=== PATIENT | male | born 1940 | race Caucasian/White ===

== ENCOUNTER → 2018-09-20 09:47 | Outpatient (CLI) | payer MEDICARE, SELFPAY ==
--- NOTE | 2018-09-20 09:55 | RAD_ITS ---
STUDY: X-RAY - ABDOMEN/PELVIS REASON FOR EXAM: Male, 78 years old. Kidney stones. TECHNIQUE: Two AP supine views of the abdomen and pelvis. COMPARISON: February 09, 2005. FINDINGS: Normal visualized lung bases. There is an unremarkable bowel gas pattern. Large amount of feces throughout the colon. There is no demonstrated free abdominal air. The visualized liver, spleen and kidneys are grossly normal in size and morphology. No visualized renal calculi. The right ureteral stent, seen on the previous study, is no longer present. There are multiple phleboliths unchanged from prior study. Stable degenerative changes of the lumbar spine and hips. RAD/Abdomen Single View IMPRESSION: 1. Interval removal of right ureteral stent seen on the prior study. 2. No visualized renal or ureteral calculi. Electronically Signed: Tigre Velázquez DO at 11:02 EDT Tel [phone], Service support ,
== END ==
PROVIDERS: Family Provider Internal Medicine; PCP Internal Medicine; Referring Provider Urology; Visit Provider Urology
DX: N20.0 Calculus of kidney (principal)
CPT/HCPCS: 74018

== ENCOUNTER 2018-10-05 05:24 | Day surgery (SDC) | payer MEDICARE, SELFPAY ==
[2018-10-05 05:48] VITALS: BP 129/83; PULSE 87; RESP 16; TEMP 36.6; O2SAT 97; BMI 33.5
[2018-10-05 06:11] LABS: Bedside Glucose 126 mg/dL (70-110)
[2018-10-05] MEDS: Cefazolin 2 GM in 0.9% Normal Saline 100 ML IV (07:23)
[2018-10-05] MEDS: Lubricating Jelly 60 GM Tube 30 GM TOPICAL (07:54)
--- NOTE | 2018-10-05 08:03 | PCM.DC.URO ---
Discharge Diet: Light diet - advance as tolerated Discharge Activity: Return to Normal Activity Call your doctor if your incision/area has: Continuous Slow Oozing, Sudden Increased Bleeding, Increased Pain/ Swelling, Increased Redness, Foul Smelling Discharge, Swelling at the incision site Instructions: Ureteral Stents, Treating Kidney Stones: Ureteroscopic Stone Removal Allergies/Adverse Reactions: Allergies morphine Allergy (Verified 09/28/18 10:28) Unknown oxycodone [From Percocet] Allergy (Verified 09/28/18 10:28) Rash Medications to take at Discharge Aspirin E.C. [Ecotrin] 325 mg PO DAILY@0800 09/28/18 Carvedilol [Coreg] 12.5 mg PO BID 09/28/18 Diltiazem [Cardizem] 120 mg PO DAILY 09/28/18 Flaxseed Oil 1,000 mg PO BID 09/28/18 Fluticasone 0.05% [Flonase Nasal [place]] 2 spray NASAL DAILY 09/28/18 Glimepiride [Amaryl] 4 mg PO DAILY 09/28/18 Levothyroxine [Synthroid] 50 mcg PO DAILY 09/28/18 Lisinopril 5 mg PO DAILY 09/28/18 Saw Benedict Fruit [Saw Benedict] 450 mg PO 4X/DAY 09/28/18 Vit A/Vit C/Vit E/Zinc/Copper [Preservision Areds Tablet] 1 each PO BID 09/28/18 Primary Care Physician: Susan Reich [Primary Care Provider] - Test Results: Test results from this visit will be discussed in further detail at your follow-up appointment, if applicable. Please Follow Up With: Kvng Hughes MD When: please call to make an appointment.
[2018-10-05 08:10] VITALS: BP 122/92; BP 129/83; PULSE 85; RESP 16; TEMP 36.6; O2SAT 94
--- NOTE | 2018-10-05 08:11 | OP.PCM_ITS ---
Report of Operation Date of Procedure: 10/05/18 Pre-Operative Diagnosis: Left renal calculi multiple Post-Operative Diagnosis: The same plus suspect uric acid stones Surgery/Procedure Performed:: Cystoscopy, left balloon dilation of the ureter, left retrograde pyelogram and interpretation of fluoroscopic images, left ureteroscopy laser lithotripsy of stones and left stent placement Description of Surgical Findings:: 78-year-old male taken back to the operating room at the smooth induction of general anesthesia he was placed in dorsolithotomy position, the penis and testicles are prepped and draped in usual sterile fashion, went into the bladder with a 21 [place] rigid cystourethroscope, I think the entire length the urethra was normal the prostate short length but obstructive bilateral hypertrophy no median lobe, the trigone was normal inside the bladder no tumors or stones were seen identified the left ureteral orifice advanced a wire up the orifice balloon dilated the distal left ureter with the balloon dilator at the balloon dilation was completed the wire in place and over the wire went in with a flexible ureteroscope, performed a retrograde pyelogram and could see contrast going up into the kidney filling of the calyces identified the stones after interpreting the fluoroscopy then I proceeded with ureteroscopy I laser the stones in the upper pole from lasered some stones in the lower pole and then there was one stone trapped in the lower pole calyx off to the side that was impossible to get into with the ureteroscope was able to get barely into the into the calyx but could not engage with the laser the side to leave the stone alone stent is stented in the lower pole trap stone probably very low likelihood given the problem will prescribe medication to dissolve the stone. I then left the wire in place over the wire I then advanced a stent stent was placed in the kidney on the left side from the kidney to the bladder left the string of the stent with string quite long so it would be easy to extract and the next follow-up visit in the patient's anesthetic was reversed he was taken to the back to PACU good condition he will follow-up in the office for a stent removal and will put him on some potassium citrate for suspected uric acid stones. Type of Anesthesia:: General Drains: stent left side - Admit VTE Documentation VTE Present on Admission: No VTE Mechan Device Prophylaxis: SCD's
[2018-10-05 08:15] VITALS: BP 118/80; BP 129/83; PULSE 85; RESP 16; O2SAT 94
[2018-10-05 08:26] LABS: Bedside Glucose 147 mg/dL (70-110)
[2018-10-05] MEDS: Ketorolac 15 MG/ML Vial IV (08:26)
[2018-10-05 08:30] VITALS: BP 126/82; BP 129/83; PULSE 80; RESP 16; O2SAT 93
[2018-10-05 08:45] VITALS: BP 127/85; BP 129/83; PULSE 75; RESP 16; TEMP 36.1; O2SAT 94
[2018-10-05 09:50] VITALS: BP 121/81; BP 129/83; PULSE 75; RESP 16; TEMP 36.1; O2SAT 96
== END 2018-10-05 09:50 | disposition home or self-care (01) ==
LOC: SDC 05:26 → AC 05:26
PROVIDERS: Family Provider Internal Medicine; PCP Internal Medicine; Referring Provider Urology; Visit Provider Urology
PROC: 0TJ98ZZ Inspection of Ureter, Via Natural or Artificial Opening Endoscopic (ICD-10-PCS; CPT 52352; principal; 2018-10-05 07:20)
DX: N20.0 Calculus of kidney (principal); N40.1 Benign prostatic hyperplasia with lower urinary tract symptoms; R35.1 Nocturia; R35.0 Frequency of micturition; E11.9 Type 2 diabetes mellitus without complications; I10 Essential (primary) hypertension; E03.9 Hypothyroidism, unspecified; E66.9 Obesity, unspecified; Z68.34 Body mass index [BMI] 34.0-34.9, adult; Z95.5 Presence of coronary angioplasty implant and graft; Z79.84 Long term (current) use of oral hypoglycemic drugs; Z79.82 Long term (current) use of aspirin; Z79.899 Other long term (current) drug therapy
CPT/HCPCS: 00873; 52356; 76000; 82962; J7120; C2617; J2405

== ENCOUNTER → 2018-11-06 10:06 | Outpatient (CLI) | payer MEDICARE, SELFPAY ==
--- NOTE | 2018-11-06 10:12 | RAD_ITS ---
STUDY: X-RAY - ABDOMEN/PELVIS REASON FOR EXAM: Male, 78 years old. Bilateral kidney stones. TECHNIQUE: Two AP supine views of the abdomen and pelvis. COMPARISON: September 20, 2018. FINDINGS: Normal visualized lung bases. There is an unremarkable bowel gas pattern. There is no demonstrated free abdominal air. The visualized liver, spleen and kidneys are grossly normal in size and morphology. No visualized renal or ureteral calculi. There are stable phleboliths in the pelvis. There are diffuse degenerative changes of the visualized lumbar spine. RAD/Abdomen Single View IMPRESSION: No visualized renal calculi or acute intra-abdominal process. Electronically Signed: Tigre Velázquez DO at 17:32 EDT Tel [phone], Service support ,
== END ==
PROVIDERS: Family Provider Internal Medicine; PCP Internal Medicine; Referring Provider Urology; Visit Provider Urology
DX: R10.9 Unspecified abdominal pain (principal)
CPT/HCPCS: 74018

== ENCOUNTER → 2018-11-15 12:00 | Outpatient (CLI) | payer MEDICARE, SELFPAY | PROVIDERS: Family Provider Internal Medicine; PCP Internal Medicine; Referring Provider Urology; Visit Provider Urology | DX: Z01.818 Encounter for other preprocedural examination (principal) ==

== ENCOUNTER → 2019-05-16 10:10 | Outpatient (CLI) | payer MEDICARE, SELFPAY ==
--- NOTE | 2019-05-16 17:58 | NEURO ---
NCS and/or EMG Patient Report HPI: Patient is a 79-year-old male presented with numbness and tingling in left hand digits specially second and fifth fingers. Patient also feels loss of sensation when picking things up. Patient is left hand dominant. Patient has been experiencing these symptoms for last 3 months. Symptoms initially began in the left shoulder down to the left hand> left shoulder pain is gone. Patient does not have any history of injury to the neck or shoulder but patient is diabetic. Physical Exam: Decreased sensation to light touch in left hand fingers, specially the second and fifth fingers. Mild tenderness of the left wrist area . Left shoulder tenderness resolved. Range of motion within normal limits at left shoulder. Findings: 1. There is prolongation of the distal latencies left median and ulnar sensory nerve responses. 2. There is prolongation of the distal latency of left median motor nerve response. 3. Normal needle examination of the left upper extremity muscles including cervical paraspinal muscles on left side except reduced recruitment in the left abductor pollicis brevis, abductor digit minimi and first dorsal interosseous muscles. Impression: 1. Findings are consistent with moderately severe left median mononeuropathy at wrist due to carpal tunnel syndrome. 2. Findings are also consistent with left ulnar sensory neuropathy. Recommendation: 1. Patient recommended to wear left hand and elbow splints as much as possible. 2. Patient recommended to avoid repetitive left hand movements and heavy lifting as well as sleeping or leaning on left elbow. 3. Patient may need surgical release of the left carpal tunnel syndrome if symptoms continues.
== END ==
PROVIDERS: Family Provider Internal Medicine; PCP Internal Medicine; Referring Provider Orthopaedic Surgery; Visit Provider Orthopaedic Surgery
DX: R20.2 Paresthesia of skin (principal)
CPT/HCPCS: 95886; 95908

== ENCOUNTER → 2020-01-02 07:38 | Outpatient (CLI) | payer MEDICARE, SELFPAY ==
--- NOTE | 2020-01-02 07:44 | CT_ITS ---
STUDY: CT ABDOMEN AND PELVIS WITH AND WITHOUT CONTRAST REASON FOR EXAM: Male, 79 years old. 3 PHASE RENAL, PT STATED F/U TO ABNORMAL KIDNEY RADIATION DOSAGE (If Supplied By Facility): CTDIvol = ( 29.50 ) mGy, DLP = ( 4336.70 ) mGycm TECHNIQUE: Transaxial images were obtained from the dome of the diaphragm to the symphysis pubis without oral contrast. IV 100mL Isovue-300 was administered. Sagittal and coronal images were reconstructed. Individualized dose optimization techniques were used for this CT. COMPARISON: None. FINDINGS: 1.2 cm calcified granuloma in the posterior medial segment of the right lower lobe. Small pericardial effusion. There is a 7.7 mm cyst in the dome of the right lobe of the liver. Normal gallbladder and extrahepatic biliary system. Normal spleen. Normal pancreas. Normal bilateral adrenal glands. 2.8 cm x 2.57 m cyst in the inferior medial portion of the right kidney. There is a 2.4 cm x 1.9 cm x 2.2 cm hypodense solid nodule in the anterior medial portion of the mid aspect of the right kidney. A neoplastic process should be ruled out. Focal cortical scarring in the inferior lateral aspect of the left kidney. There is a small hiatal hernia. Normal small intestine. There are multiple colonic diverticula consistent with diverticulosis. The appendix is visualized and appears normal. There is diffuse atherosclerotic calcification of the abdominal aorta and major visceral branches, without a demonstrated aneurysm. Normal inferior vena cava. Normal retroperitoneum. Normal urinary bladder. The prostate measures 4.8 cm x 4.1 cm. This causes indentation of the bladder base. Phleboliths are seen in the pelvis. There is a small umbilical hernia containing fat. Normal osseous structures. CT/CT Abd/Pelvis W/WO Contrast IMPRESSION: There is a 2.4 cm x 1.9 cm x 2.2 cm solid mass in the anterior medial aspect of the right kidney. A neoplastic process or pleural Right renal cyst along the inferior pole. Sigmoid diverticulosis. Electronically Signed: Billy Curran, at 12:48 EDT , Service support ,
== END ==
PROVIDERS: PCP Internal Medicine; Referring Provider Urology; Visit Provider Urology
DX: D41.01 Neoplasm of uncertain behavior of right kidney (principal); N28.9 Disorder of kidney and ureter, unspecified
CPT/HCPCS: 74178; Q9967

== ENCOUNTER → 2021-03-03 13:41 | Outpatient (CLI) | payer MEDICARE, SELFPAY ==
--- NOTE | 2021-03-03 14:11 | CT_ITS ---
STUDY: CT ABDOMEN AND PELVIS WITH CONTRAST REASON FOR EXAM: Male, 81 years old. NEOPLASM OF RIGHT KIDNEY RADIATION DOSAGE (If Supplied By Facility): CTDIvol = ( 29.51 ) mGy, DLP = ( 1210.78 ) mGycm TECHNIQUE: Transaxial images were obtained from the dome of the diaphragm to the symphysis pubis without oral contrast. IV 100mL Isovue-370 was administered. Sagittal and coronal images were reconstructed Individualized dose optimization techniques were used for this CT. COMPARISON: 01/02/2020 FINDINGS: The visualized lung bases are unremarkable. The visualized portions of the heart are within normal limits. Normal liver. Normal gallbladder and extrahepatic biliary system. Normal spleen. Normal pancreas. Similar appearance of bilateral adrenal gland nodularity. 2.7 x 2.3 x 2.3 cm enhancing right upper pole renal mass (2.4 x 2.1 x 2.2 cm on 01/02/2020 CT when measured in a similar fashion). Bilateral renal cysts. Normal visualized stomach. Normal small intestine. Normal colon. The appendix is visualized and appears normal. Normal abdominal aorta. Normal inferior vena cava. Normal retroperitoneum. Normal urinary bladder. There are prostatic calcifications. Normal abdominal wall. There are diffuse degenerative changes of the visualized lumbar spine. CT/Abdomen/Pelvis W IV Cont ONLY IMPRESSION: Mildly increased size of right renal mass compared to 01/02/2020. No finding of locoregional lymphadenopathy to suggest spread. Electronically Signed: Anders Salazar MD at 4:03 EDT Tel , Service support ,
[2021-03-03 14:40] LABS: CREATININE FINGERSTICK 1.6 mg/dL (0.70-1.30)
== END ==
LOC: CT 13:48
PROVIDERS: PCP Internal Medicine; Referring Provider Urology; Visit Provider Urology
DX: D41.01 Neoplasm of uncertain behavior of right kidney (principal)
CPT/HCPCS: 74177; Q9967

== ENCOUNTER → 2022-05-25 | Outpatient (CLI) | payer MEDICARE, SELFPAY ==
--- NOTE | 2022-05-25 17:05 | MRI_ITS ---
INDICATION: NEOPLASM OF UNCERTAIN BEHAVIOR OF RIGHT KIDNEY, EXAMINATION: MR Abdomen WO/W Contrast TECHNIQUE: Multiplanar and multisequence MR images of the abdomen were obtained. IV Contrast Dosage and Agent: Yes YES 22ML IV CLARISCAN COMPARISON: CT 03/03/2021. FINDINGS: LIVER: Homogeneous. No focal mass. GALLBLADDER AND BILIARY TREE: No filling defects in the gallbladder. No gallbladder distension or wall edema. No intra- or extrahepatic biliary ductal dilation. PANCREAS: No focal cystic or solid mass. SPLEEN: Normal size without focal cystic or solid mass. ADRENAL GLANDS: No nodules. KIDNEYS AND URETERS: Normal renal size and position. No hydronephrosis. And lower pole of the right kidney there is a 3 cm T1 hypointense/T2 hyperintense cyst with no enhancement. In the upper pole the right kidney there is a 2.4 cm heterogeneously T1 hypointense/T2 hyperintense lesion with questionable heterogeneous loss of signal on fat saturation images and questionable minimal enhancement. PERITONEUM: No ascites or free air. No other fluid collection. LYMPH NODES: No enlarged mesenteric or retroperitoneal lymph nodes. VESSELS: Aorta is non-dilated. MRI/MRI Abd WITH and W/O Contrast IMPRESSION: 2.4 cm heterogeneous lesion in the right upper renal pole remains indeterminate. Cannot rule out renal cell carcinoma. Consider additional short term follow-up CT abdomen in 3 months to assess for growth. Electronically Signed: Jose Lam MD at 18:23 EST ,
[2022-05-25 17:45] LABS: EGFR FINGERSTICK > 60.0000 mL/min (>60)
== END | disposition home or self-care (01) ==
PROVIDERS: PCP Internal Medicine; Referring Provider Urology; Visit Provider Urology
DX: D41.01 Neoplasm of uncertain behavior of right kidney (principal)
CPT/HCPCS: 74183; A9575

== ENCOUNTER → 2023-06-05 | Outpatient (CLI) | payer MEDICARE, SELFPAY ==
[2023-06-05 15:06] LABS: Anion Gap 5 (5-15); BUN 35 mg/dL (7-18); BUN/Creat Ratio 17.6 RATIO (10-20); Calcium,Total 8.9 mg/dL (8.5-10.1); Chloride 107 mmol/L (98-107); Creatinine, Serum 1.99 mg/dL (0.70-1.30); EST Glomerular Filtration Rate 34 mL/min (>60); Est Glom Filt Rate - Afr Amer 41 mL/min (>60); Glucose 258 mg/dL (74-106); Potassium 4.5 mmol/L (3.5-5.1); Sodium Level 141 mmol/L (136-145)
== END | disposition home or self-care (01) ==
LOC: LAB 14:18
PROVIDERS: PCP Internal Medicine; Referring Provider Nurse Practitioner; Visit Provider Nurse Practitioner
DX: D41.01 Neoplasm of uncertain behavior of right kidney (principal)
CPT/HCPCS: 36415; 80048

== ENCOUNTER → 2023-06-14 | Outpatient (CLI) | payer MEDICARE, SELFPAY ==
--- NOTE | 2023-06-14 14:47 | CT_ITS ---
STUDY: CT ABDOMEN AND PELVIS WITH AND WITHOUT CONTRAST REASON FOR EXAM: Male, 83 years old. 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 IV 75mL Isovue-370 was administered. Sagittal and coronal images were reconstructed. Individualized dose optimization techniques were used for this CT. COMPARISON: Comparison is made with prior study March 03, 2021. FINDINGS: Calcified granuloma in the posterior medial segment of the right lower lobe. Coronary artery calcification. There is decreased attenuation of the liver consistent with steatosis. Normal gallbladder and extrahepatic biliary system. There is a benign calcified granuloma of the spleen. Normal pancreas. Normal bilateral adrenal glands. There is a 2.5 cm x 2 cm heterogeneously enhancing solid nodule in the anterior upper midpole of the right kidney. There is evidence of cortical scarring in the lateral aspect. There is also evidence of a 3.2 cm x 2.8 cm cyst in the medial inferior pole of the right kidney. Mild atrophy of the left kidney. Tiny cyst in the lateral aspect. Normal visualized stomach. Normal small intestine. There are multiple colonic diverticula consistent with diverticulosis. The appendix is visualized and appears normal. There is diffuse atherosclerotic calcification of the abdominal aorta, without a demonstrated aneurysm. Normal inferior vena cava. Normal retroperitoneum. Normal urinary bladder. Normal abdominal wall. There are diffuse degenerative changes of the visualized lumbar spine. CT/CT Abd/Pelvis W/WO Contrast IMPRESSION: 2.5 cm x 2 cm heterogeneous enhancing solid nodule in the anterior upper midpole of the right kidney. A neoplastic process should be ruled out. Small left renal cyst. Right renal cyst. Mild bilateral renal cortical thinning. Electronically Signed: Billy Curran MD at 15:24 EST ,
== END | disposition home or self-care (01) ==
PROVIDERS: PCP Internal Medicine; Referring Provider Urology; Visit Provider Urology
DX: D41.01 Neoplasm of uncertain behavior of right kidney (principal)
CPT/HCPCS: 74178; Q9967

== ENCOUNTER 2023-07-26 09:50 | Observation (INO) | payer MEDICARE, SELFPAY ==
[2023-07-26] VITALS (14 sets, daily range): BP systolic 75–132; BP diastolic 55–92; PULSE 85–107; RESP 16–18; TEMP 35.5–37; O2SAT 90–97; BMI 34.4
[2023-07-26] MEDS: Lactated Ringers 1,000 ML 15 ML IV ×3 (06:47→11:38)
[2023-07-26 06:53] LABS: Thyroid Stim Hormone (TSH) 6.63 uIU/mL (0.358-3.74)
[2023-07-26 07:11] LABS: Bedside Glucose 210 mg/dL (74-106)
--- NOTE | 2023-07-26 07:11 | PCM.HP.STD ---
[facility] - General General Date of Service: 07/26/23 Chief Complaint: right renal mass HPI Narrative BANDAR ROSA, is a 83 M who presents for a right partial nephrectomy for a renal mass concerning for a malignancy. [facility] Medical History (Updated 07/13/23 @ 09:36 by Ching Gallegos) Arthritis Back pain Bladder disease Calcification of lung Cardiology follow-up encounter Diabetes Dietary restriction High cholesterol History of atrial fibrillation History of echocardiogram History of edema History of heart attack History of renal disease History of stress test Hypertension Loss of hearing Non-smoker Pinched nerve in neck Shortness of breath on exertion Thyroid disease Wears glasses Home Medications carvedilol 12.5 mg tablet 25 mg PO BID BP 09/28/18 [History Last Taken 07/26/23] diltiazem HCl 60 mg tablet 120 mg PO QHS BP 09/28/18 [History Last Taken 10/04/18 18:30 120 MG] levothyroxine 50 mcg tablet 100 mcg PO DAILY THYROID 09/28/18 [History Last Taken 07/26/23] lisinopril 5 mg tablet 2.5 mg PO QHS BP 09/28/18 [History Last Taken Unknown] vitamins A,C,R-dipa-jgkdoe 2,148 mcg-113 mg-45 mg-17.4 mg tablet (PreserVision AREDS) 1 ea PO BID SUPPLEMENT 09/28/18 [History Last Taken Unknown] allopurinol 100 mg tablet 100 mg PO DAILY 07/13/23 [History Last Taken Unknown] apixaban 2.5 mg tablet (Eliquis) 2.5 mg PO DAILY 07/13/23 [History Last Taken 07/22/23] aspirin 81 mg tablet,delayed release (Adult Low Dose Aspirin) 81 mg PO DAILY 07/13/23 [History Last Taken 07/20/23] atorvastatin 40 mg tablet 40 mg PO QHS 07/13/23 [History Last Taken Unknown] cholecalciferol (vitamin D3) 125 mcg (5,000 unit) tablet (Vitamin D3) 125 mcg PO DAILY 07/13/23 [History Last Taken Unknown] empagliflozin 10 mg tablet (Jardiance) 10 mg PO DAILY 07/13/23 [History Last Taken Unknown] finasteride 5 mg tablet 5 mg PO QHS 07/13/23 [History Last Taken Unknown] flaxseed oil 1,000 mg capsule 1,000 mg PO DAILY 07/13/23 [History Last Taken Unknown] glipizide 10 mg tablet 10 mg PO BID 07/13/23 [History Last Taken Unknown] Allergy/AdvReac Type Severity Reaction Status Date / Time morphine Allergy Unknown Verified 07/26/23 06:25 oxycodone [From Percocet] Allergy Rash Verified 07/26/23 06:25 Surgical History (Updated 07/13/23 @ 09:36 by Ching Gallegos) History of ureteroscopy Hx of colonoscopy Hx of fusion of cervical spine Hx of heart artery stent Hx of left cataract extraction Hx of right cataract extraction Hx of total knee arthroplasty Hx of total knee arthroplasty Social History Smoking Status: Never smoker Vital Signs Vital Signs Vital Signs: 07/26/23 06:29 07/26/23 06:29 Temperature 97.0 F L Temperature Source Temporal Pulse Rate 103 H Respiratory Rate 18 Respiratory Pattern Normal Blood Pressure 102/80 Blood Pressure Mean 87 Blood Pressure Source Monitor Blood Pressure Position Semi-Fowlers Blood Pressure Location Left Arm Pulse Ox 95 Oxygen Delivery Method Room Air Weight Weight: 109 kg Body Mass Index (BMI) 34.4 Results Lab / Micro Data Labs: Laboratory Results - last 24 hr 07/26/23 06:15: TSH 6.63 H
--- NOTE | 2023-07-26 07:30 | KID_PTH ---
PATIENT: BANDAR ROSA LOC: MS3 U#:[id number] AGE/SX: 83/M [place] [facility] [place]07/26/[address]: Dr. Kvng Hughes MD : 1940 BED: 1 DIS: 07/27/2023 SPEC #: [id number] RECD: 07/26/23 11:34 STATUS: KRYSTEN HOFFMAN #: [id number] TOMAS: 07/26/23 07:[address]: Kvng Hughes DEPT: SURGICAL PATHOLOGY RECD BY: Maureen Sandoval ENTERED: 07/26/23 11:35 SP TYPE: KIDNEY OTHR DR: Dr. 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 See synoptic report below. AM:danae 07/28/2023 COMMENT RENAL CARCINOMA SUMMARY Procedure - partial nephrectomy Specimen laterality - right kidney Tumor size - 3.0 x 2.5 cm Tumor focality - single focus Histologic type - clear cell renal cell carcinoma Sarcomatoid features - not identified Rhabadoid features - not identified Histologic grade - Thalia grade 1-3/4. See NOTE. Tumor necrosis - not present Tumor extension - tumor confined to kidney. Margins - uninvolved by invasive carcinoma. Lymphvascular invasion - not identified Regional lymph nodes - no lymph nodes found. Non-neoplastic kidney - fibrosis, arterionephrosclerosis and focal chronic inflammation. PATHOLOGIC STAGE: pT1a Nx Mx The above summary is in compliance with [employer] [place] [employer] (CAP) Cancer Protocols Checklist and [place] [employer] Committee on Cancer (AJCC), Staging Manual, 8th Ed. NOTE: The majority of the tumor is grade 1 and 2 but focally, there is grade 3 tumor. Clinical correlation is suggested. Case has been reviewed in consultation with Dr. Connor who concurs with the above diagnosis. IDC:SJ MICROSCOPIC DESCRIPTION Slides are reviewed. GROSS DESCRIPTION Received in fixative is one container labeled with the patient's name and designated right kidney mass. The specimen consists of a partial nephrectomy specimen measuring 3.0 x 2.5 x 2.0 cm and weighing 6.7 gm. External surface is inked. Serial sections reveal a yellow hemorrhagic mass involving almost entire specimen with a thin rim of normal kidney tissue. The entire specimen is submitted in six cassettes from one end to another end. / SJ:rg 07/27/2023 TC:0 CPT: 52308
[2023-07-26] MEDS: Cefazolin 2 GM in 0.9% Normal Saline (100mL Bag) 100 ML IV (07:45)
[2023-07-26 09:10] LABS: Hemoglobin A1c 8.5 % (3.8-5.6)
[2023-07-26] MEDS: Bupivacaine Mpf 0.5% 30 ML VIAL (09:49)
--- NOTE | 2023-07-26 09:55 | OP.PCM_ITS ---
Report of Operation Date of Procedure: 07/26/23 Pre-Operative Diagnosis: Right renal mass Post-Operative Diagnosis: The same Surgery/Procedure Performed:: Laparoscopic robotic assisted right partial nephrectomy Description of Surgical Findings:: 83-year-old male was found to have an enlarging right renal mass at this point we decided to do intervention and remove the mass for the increased risk of malignancy and metastasis as the mass is getting larger. Patient was taken back to the operating room after smooth induction of general anesthesia he was placed supine on the table catheter was placed he was then placed in full flank positi on table was flexed all the way all the pressure points were padded we had an axillary roll in place after use was secured to the table then his abdomen was shaved prepped and draped in usual sterile fashion made to small incision in the mid abdomen for the camera port right arm port left arm port and then an air seal port the ports were placed pneumoperitoneum was obtained we docked the robot I first reflected the colon off the kidney starting from inferiorly all the way up to superiorly I then reflected the fact Gerota's fascia off the kidney until I kocherized the duodenum and then I went back to the kidney I then opened up the Gerota's fascia dissected down to the fat on top of the kidney and dissected to the fat of the kidney I had that had come with sticky fat but is able to get into the parenchyma layer on top of the kidney then using ultrasound identified the tumor which is a 2.5 cm tumor tumor in the anterior hilum area it was partially exophytic. The edges of the tumor were then identified I then carefully dissected all the way around the tumor to freed up from the pseudocapsule I then identified the pseudocapsule of the tumor and then in an off clamp fashion we proceeded with the resection of the tumor following the pseudocapsule the tumor very carefully all the way around without any violations of the tumor the tumor was enucleated from its bed at the base of the bed there was some larger blood vessels that were bleeding these were controlled with bipolar coag after the tumor was enucleated then I placed an Endo Catch bag and then we placed Floseal and Surgicel in the tumor bed and then we closed the tumor bed over with 0 Vicryl hemostatic stitches to apply pressure to the bed and this stopped the bleeding. We then lowered the pressure to make sure there is no bleeding at low pressure suction around the edges of the tumor site there was no bleeding we then covered the fat over the resection site for protection and then the robot was then docked the tumor was extracted through the air seal port and then the air seal port was closed the patient is anesthetic is currently being reversed and reclosing the incisions with subcuticular stitches blood loss was about 180 cc successful unclamped resection of tumor. Tumor was removed completely with no violation of tumor capsule Surgeon: Kvng Hughes Type of Anesthesia: General Drains: velazquez Estimated Blood Loss (mL): 180ml Admit VTE Documentation VTE Present on Admission: No VTE Mechan Device Prophylaxis: SCD's VTE Pharm Prophylaxis ordered?: No
--- NOTE | 2023-07-26 09:59 | DCINST_ITS ---
Discharge Instructions Diet Discharge Diet: No restrictions Activity Discharge Activity: Return to Normal Activity and May Not Drive (while taking narcotic pain medications.) Dressing / Incision Call your doctor if you observe: Fever of 101 or Higher Follow Up Care Please Follow Up With: Kvng Hughes MD When: Call [phone] for an appointment Test Results: Test results from this visit will be discussed in further detail at your follow- up appointment, if applicable. Discharge Plan Admission Primary Reason for Your Visit: Right renal mass Attending Provider: Kvng Hughes Primary Care Provider: Susan Reich Discharge Orders/Prescriptions Prescriptions: New ibuprofen 600 mg tablet 600 mg PO Q6H PRN (Reason: fever or pain) Qty: 20 0RF Continued carvedilol 12.5 MG tablet 25 mg PO BID levothyroxine 50 MCG tablet 100 mcg PO DAILY lisinopril 5 MG tablet 2.5 mg PO QHS diltiazem HCl 60 MG tablet 120 mg PO QHS PreserVision AREDS 1 EACH tablet 1 ea PO BID glipizide 10 mg tablet 10 mg PO BID finasteride 5 mg tablet 5 mg PO QHS allopurinol 100 mg tablet 100 mg PO DAILY atorvastatin 40 mg tablet 40 mg PO QHS flaxseed oil 1,000 mg capsule 1,000 mg PO DAILY cholecalciferol (vitamin D3) [Vitamin D3] 125 mcg (5,000 unit) tablet 125 mcg PO DAILY Jardiance 10 mg tablet 10 mg PO DAILY Patient Comments: TAKE 1 TABLET BY MOUTH EVERY DAY Held Eliquis 2.5 mg tablet 2.5 mg PO DAILY Hold Instructions: Resume on 08/02/23. aspirin [Adult Low Dose Aspirin] 81 mg tablet,delayed release (DR/EC) 81 mg PO DAILY Hold Instructions: Resume on 08/09/23. Referrals / Follow Up: Susan Reich MD [Primary Care Provider] - Kvng Hughes MD [Med Staff - Active Staff] - Disposition Disposition (needs filled in before D/C Order can be placed): Home, Self Care
[2023-07-26 10:34] LABS: Bedside Glucose 253 mg/dL (74-106)
[2023-07-26] MEDS: 0.9% Normal Saline (1000mL) 1,000 ML 125 ML IV ×2 (13:11→21:20)
[2023-07-26] MEDS: Acetaminophen 325 MG Tablet PO (13:14)
[2023-07-26] MEDS: 0.9% Saline Lock 10 ML Syringe IV (14:50)
[2023-07-26] MEDS: Ketorolac 15 MG/ML Vial IV (14:50)
[2023-07-26] MEDS: glipiZIDE 10 MG Tablet PO (17:23)
[2023-07-26 17:41] LABS: Bedside Glucose 215 mg/dL (74-106)
[2023-07-26] MEDS: Atorvastatin Calcium 40 MG Tablet PO (21:20)
[2023-07-26] MEDS: Docusate Sodium 100 MG Capsule 200 MG PO (21:20)
[2023-07-26] MEDS: Finasteride 5 MG Tablet PO (21:21)
[2023-07-26] MEDS: Lisinopril 2.5 MG Tablet PO (21:24)
[2023-07-27 00:34] VITALS: BP 105/61; PULSE 94; RESP 16; TEMP 36.5; O2SAT 93
[2023-07-27 03:10] VITALS: O2SAT 89
[2023-07-27 03:31] VITALS: O2SAT 96
[2023-07-27 04:38] VITALS: BP 113/56; PULSE 98; RESP 16; TEMP 37; O2SAT 94
[2023-07-27] MEDS: 0.9% Normal Saline (1000mL) 1,000 ML 125 ML IV (04:45)
[2023-07-27] MEDS: Acetaminophen 325 MG Tablet PO (04:47)
[2023-07-27] MEDS: Levothyroxine 100 MCG Tablet PO (07:00)
--- NOTE | 2023-07-27 07:28 | PN.URO_ITS ---
Subjective Subjective Status post right partial nephrectomy patient is doing well we can Hep-Lock his fluid DC Yassine advance to regular diet as tolerated ambulate patient should be able to go home later today after lunch as long as he is tolerating lunch and ambulating okay. When he goes home he need to hold all blood thinners no aspir in and no Eliquis until I see him in 2 weeks. Objective Data Objective Data Vital Signs: Vital Signs Temp Pulse Resp BP Pulse Ox O2 Del Method O2 Flow Rate 98.6 F 98 16 113/56 L 94 Nasal Cannula 2 07/27/23 04:38 07/27/23 04:38 07/27/23 04:38 07/27/23 04:38 07/27/23 04:38 07/27/23 04:38 07/27/23 04:38 Oxygen Flow Rate (L/min) 2 Oxygen Delivery Method Nasal Cannula Weight: 109 kg Body Mass Index (BMI) 34.4 Intake & Output: Intake and Output for Last 24 Hours 07/25/23 07/26/23 07/27/23 23:59 23:59 23:59 Intake Total 4136 / 4436 1427.08 / 1427.08 Output Total 660 / 1010 650 / 650 Balance 3476 / 3426 777.08 / 777.08 Lab / Micro Data Labs: Laboratory Results - last 24 hr 07/26/23 06:15: Hemoglobin A1c 8.5 H 07/26/23 10:16: POC Glucose 253 H 07/26/23 17:22: POC Glucose 215 H
--- NOTE | 2023-07-27 07:56 | NURSING ---
Metzger removed per doctors orders. 10cc removed patient denies any discomfort during this time.
[2023-07-27 08:02] VITALS: BP 126/76; PULSE 95; RESP 18; TEMP 36.9; O2SAT 94
[2023-07-27 08:08] VITALS: BP 126/76; PULSE 95; RESP 18; TEMP 36.9; O2SAT 95
[2023-07-27] MEDS: Docusate Sodium 100 MG Capsule 200 MG PO (08:13)
[2023-07-27] MEDS: glipiZIDE 10 MG Tablet PO (08:13)
[2023-07-27] MEDS: Empagliflozin 10 MG Tablet PO (08:13)
[2023-07-27] MEDS: Allopurinol 100 MG Tablet PO (08:13)
[2023-07-27] MEDS: Carvedilol 25 MG Tablet PO (08:13)
--- NOTE | 2023-07-27 08:55 | CM.UR ---
OLVIN HUERTAS Assessment: Face to Face with pt for initial transition planning/care coordination assessment. RN KIYA introduced self and role at [facility], pt voices understanding and consents to assessment. Pt is A&O x4 and answers all questions appropriately at this time. Pt lying in bed in no distress. Care providers, pharmacy, and demographics verified/updated. Admitting Dx:lap robotic partial nephrectomy PCP:Damir Specialists:Ellen, uro; Daniel, derm; Cardio in [place], pt could not recall name Preferred Pharmacy:[facility] Insurance:[employer] [facility] Prescription Benefit: yes LNOK:Dipika Bowens, dtr; Latoya Carrington, Living Arrangements: Pt lives with in a single story home with 2 steps to enter with a rail. Pt reports he is I in ADL's and denies concerns at home. Transportation: Pt drives self and denies concerns with transportation. Pt is also able to transport pt if needed. DME:built in shower seat, cane, walker HHC/SNF:Pt denies hx of Pt states no concerns with going home at time of dc. Pt states no further concerns/needs. CM to follow. Advised pt to ask CM if any further question/concerns/needs arise, voices understanding. Pt Goal:Home Plan:Home
== END 2023-07-27 13:39 | disposition home or self-care (01) | DRG 657 ==
LOC: SDC 12:08 → MS3 07-27 08:37
PROVIDERS: Anesthesiology; Admitting Provider Urology; PCP Internal Medicine; Referring Provider Urology; Visit Provider Urology
PROC: (CPT 50543; principal; 2023-07-26 07:10)
DX: C64.1 Malignant neoplasm of right kidney, except renal pelvis (principal); I48.20 Chronic atrial fibrillation, unspecified; E11.9 Type 2 diabetes mellitus without complications; I10 Essential (primary) hypertension; E78.00 Pure hypercholesterolemia, unspecified; I25.2 Old myocardial infarction; Z95.5 Presence of coronary angioplasty implant and graft; Z98.1 Arthrodesis status; Z79.01 Long term (current) use of anticoagulants; Z79.82 Long term (current) use of aspirin; Z79.84 Long term (current) use of oral hypoglycemic drugs; Z79.899 Other long term (current) drug therapy
CPT/HCPCS: 50543; S2900; 00862; 82962; 83036; 84443; 88307; 96361; 96374; 99221; J7030; J7120; A4216; G0378; J2405

== ENCOUNTER → 2025-06-11 | Outpatient (CLI) | payer MEDICARE, SELFPAY ==
--- NOTE | 2025-06-11 17:16 | CT_ITS ---
PROCEDURE: ABDOMEN/PELVIS W IV CONT ONLY 06/11/2025 REASON FOR EXAM: MALIGNANT NEOPLASM OF RIGHT KIDNEY TECHNIQUE: Procedure Code: [id number] Modality: CT Procedure: ABDOMEN/PELVIS W IV CONT ONLY CT abdomen and pelvis was performed with IV contrast. Multiplanar reformats were generated. CONTRAST: Isovue 370 VOLUME: 95 mL One or more dose reduction techniques were used (e.g., Automated exposure control, adjustment of the mA and/or kV according to patient size, use of iterative reconstruction technique. RADIATION DOSE SUMMARY: CTDlvol: 3.32+ 22.40+ 23.13 mGy DLP: 2303.36 mGycm COMPARISON: 06/14/2023 FINDINGS: Lung bases: Advanced multivessel coronary atherosclerosis and/or stents. Trace pericardial fluid. Atelectasis/scarring. Chronic granulomatous disease. 2 mm micronodule RIGHT lung base not clearly calcified (series 2, image 2). Liver: Similar punctate RIGHT lobe hypodensity too small to characterize presumed benign given stability.. Spleen: Granuloma. Gallbladder/biliary: Unremarkable. Pancreas: Somewhat atrophic. Adrenals: Unremarkable. Kidneys: Symmetric nonspecific perinephric stranding. Presumed interval resection of anterior mid to upper pole RIGHT renal lesion, resection bed incompletely characterized in the absence of noncontrast imaging. Questionable ill-defined at least 1.7 cm nodular enhancing soft tissue in the region on corticomedullary phase imaging, essentially isoenhancing on delayed imaging, potentially extending into and distending the adjacent renal pelvis. This may extend RIGHT renal cyst. Additional punctate hypodensities far too small to characterize, presumed additional cysts. Bowel: Minimal sigmoid diverticulosis.. Normal caliber appendix. Lymph nodes: Unremarkable. Vasculature: Atherosclerosis. Tortuous common iliac arteries with ectasia on the LEFT to 21 mm. Peritoneum: Unremarkable. Bladder: Underdistended and suboptimally evaluated, grossly unremarkable. Reproductive Organs: Mild prostatomegaly. Body Wall: Unremarkable. Bones: Degenerative findings. Similar sclerotic likely bone island LEFT rib. CT/Abdomen/Pelvis W IV Cont ONLY IMPRESSION: 1. Incomplete evaluation of presumed RIGHT partial nephrectomy bed in the absen ce of noncontrast imaging. Question ill-defined at least 1.7 cm residual or recurrent mass potentially extending into and diste nding the renal pelvis. Recommend multiphase renal protocol MRI with and without contrast and with subtraction sequences for more complete/optimal evaluation. 2. 2 mm micronodule RIGHT lung base. Given the context, recommend follow-up to evaluate stability. Note that in the setting of a known history of malignancy, the Fleischner guidelines for pulmonary follow-u p cannot be applied. 3. Additional description as above. Incidental Finding Alert: Recommend follow-up as above. Management of incident al findings should follow the [employer] (ACR) Incidental Findings Committee recommendations. Reading Location: [id number]
[2025-06-11 17:40] LABS: CREATININE FINGERSTICK < 1.0 mg/dL (0.70-1.30); EGFR FINGERSTICK > 60.0000 mL/min (>60)
== END | disposition home or self-care (01) ==
LOC: CT 17:15
PROVIDERS: PCP Internal Medicine; Referring Provider Urology; Visit Provider Urology
DX: C64.1 Malignant neoplasm of right kidney, except renal pelvis (principal)
CPT/HCPCS: 74177; Q9967